=== PATIENT | female | born 1940 | race Caucasian/White ===

== ENCOUNTER 2023-09-23 09:25 | Outpatient (AMB) | payer MEDICARE, SELFPAY ==
--- NOTE | 2023-09-23 09:30 | MHC.OFFWIV ---
Intake Vital Signs 09/23/23 09:47 Height 5 ft 4 in Weight 170 lb BMI 29.2 BP 130/78 Blood Pressure Location Lt brachial Position Sitting Pulse 72 Pulse Source Pulse Oximeter Temp 97.2 F Temp Source Temporal Artery Scan Pulse Oximetry (%) 97 Oxygen Delivery Method Room Air Intake Visit Reasons: [employer] Wax removal RT/Possible it's both Intake Note: pt is here today for wax removal rt ear possible both started 4 days ago Patient Tobacco Use Status: Never used Tobacco Allergies morphine Allergy (Mild, Verified 09/23/23 09:51) Confusion Do you need a note to return to daycare/school/sports/work: No HPI HPI Comments History of Present Illness Details Patient is an 83-year-old female complaining of a cerumen blocked right ear. She states she went to [facility] 3 days ago for a hearing test but they could not test her because her ear was blocked with cerumen. She denies any pain or changes in her hearing. She states she has been using Debrox drops for a few years and she has been using them since Saturday. She states she puts 10 drops in each ear and then lays on each side for about 10 minutes. She has also been flushing her right ear with a syringe. She is asking for us to remove the wax in her ear today. [facility] Social History Patient Tobacco Use Status: Never used Tobacco Review of Systems Const All systems reviewed & are unremarkable except as noted in HPI and below Physical Exam Vital Signs: Last Vital Signs Temp 97.2 F 09/23/23 09:47 Pulse 72 09/23/23 09:47 BP 130/78 09/23/23 09:47 Pulse Ox 97 09/23/23 09:47 Oxygen Delivery Method Room Air 09/23/23 09:47 BMI result Body Mass Index 29.2 Const General: cooperative, healthy appearing, comfortable, no acute distress and well developed Orientation/consciousness: patient oriented x3 Limitations: no limitations HEENT Head: Yes normal to inspection Ears: TM normal on the left and unable to visualize TM (Cerumen impacted) on the right General nose exam: Normal external nose present Face and sinus: Yes normal facial exam Eyes General: appearance normal, both eyes and all related structures Neck Neck: Yes normal visual inspection and Yes full ROM Resp Effort & Inspection: normal respiratory effort and able to speak in complete sentences Skin General skin exam: no rashes or lesions noted Neuro General: patient oriented x3 Extrem General: Yes normal to inspection Office Procedures Cerumen Removal From which ear canal was the cerumen removed: right Removal: irrigation and otoscope w/curette Notes: patient tolerated procedure well, no complications and ear canal clear [id number] Wax Removal by Spoon/Curette Assessment & Plan Assessment & Plan (1) Impacted cerumen, right ear: Code(s): H61.21 - Impacted cerumen, right ear Plan: Cerumen removed, ear canal clear. Recommended Debrox drops for prophylaxis. Plan See above Coding Level of Care Code New Pt Level 3 (14171) Diagnoses Impacted cerumen, right ear H61.21 CPT Codes Office Procedure - CPT: 46038-Qwk Wax Removal by Spoon/Curette ([id number])
[2023-09-23 09:47] VITALS: BP 130/78; PULSE 72; TEMP 36.2; O2SAT 97; BMI 29.2
== END 2023-09-23 11:14 | disposition home or self-care (01) ==
PROVIDERS: PCP Family Medicine; Visit Provider Physician Assistant
DX: H61.21 Impacted cerumen, right ear (principal)
CPT/HCPCS: 69210; 99202